=== PATIENT | male | born 1940 | race Caucasian/White ===

== ENCOUNTER 2017-05-19 21:07 | Emergency (ER) | payer OTHER ==
[~2017-05-19] VITALS: Ht 177.8 cm; Wt 108.1 kg
[~2017-05-19 21:07] MED LIST: ACETAMINOPHEN; ALLOPURINOL100 MG PO; BREO ELLIPTA 21 EACH IH; BUMEX1 MG PO; CALCITRIOL0.25 MCG PO; CATAPRES0.3 MG PO; COUMADIN,JANTOVE4 MG PO; COUMADIN4 MG PO; COZAAR100 MG PO; DAILY VALUE1 EACH PO; DIGESTIVE ADVA1 EAC1 PO; Diabeta,Micronase PO; FLAGYL500 MG PO; FORTAMET1000 M1 PO; HUMALIN N; HUMALOG (UNIT)1 UNIT SC; HUMALOG100 UNITS/ SC; HYTRIN10 MG PO; INCRUSE ELLI62.5 MCG IH; K-DUR20 MEQ PO; KEFLEX500 MG PO; KLOR-CON M2020 MEQ PO; LASIX40 MG PO; LEVAQUIN750 MG PO; LEVOTHROID50 MCG PO; LEVOTHYROXINE100 MCG PO; MAXZIDE 37.5 M1 EACH PO; METOPROLOL TART25 MG PO; MULTIVITAMIN1 EAC1 PO; NADOLOL40 M1 PO; NOVOLIN N100 UNITS/ SC; PRINIVIL20 MG PO; SIMVASTATIN40 M1 PO; SIMVASTATIN40 MG PO; SPIRIVA1 INHALATI IH; TRADJENTA5 MG PO; TRAMADOL HCL50 MG PO; TRIAMTERENE-HC1 EACH PO; TYLENOL ARTHRI650 MG PO; Tylenol Extra Streng PO; ULTRAM50 MG PO; VITAMIN C1000 M2 PO; VITAMIN C1000 MG PO; ZESTRIL20 MG PO; [UNRECOGNIZED DRUG - OTHER]; [UNRECOGNIZED DRUG - REMARK]
[2017-05-19 21:53] LABS: HEMATOCRIT 27.5 % (38.0-50.0); MCH 27.9 PG (29.0-34.0); MCHC 30.2 G/DL (30.0-36.0); MCV 92.3 FL (86-99); MEAN PLAT.VOLUME 9.8 uM^3 (9.0-12.4); PLATELET COUNT 171 K/uL (156-360); RBC DIS.WIDTH-CV 15.6 % (11.8-14.6); RBC DIS.WIDTH-SD 52.6 % (39-53); RED BLOOD COUNT 2.98 M/uL (4.00-5.50)
[2017-05-19 22:05] LABS: INTER. NORMALIZED RATIO 2.7; PROTHROMBIN TIME 28.7 (9.2-11.2); PTT 35.5 (25-32)
[2017-05-19 23:24] VITALS: BP 155/74
== END 2017-05-19 23:32 | disposition home or self-care (01) ==
LOC: EXP 21:07 → EME 21:07 → EXP 23:32
PROVIDERS: Physician Assistant
DX: R31.9 Hematuria, unspecified (principal); E11.9 Type 2 diabetes mellitus without complications; I10 Essential (primary) hypertension; I25.2 Old myocardial infarction; Z95.1 Presence of aortocoronary bypass graft; Z79.02 Long term (current) use of antithrombotics/antiplatelets; Z79.4 Long term (current) use of insulin
CPT/HCPCS: 81003; 85027; 85610; 85730; 99281; 99284

== ENCOUNTER 2017-07-02 14:30 | Inpatient (IN) | payer OTHER ==
[~2017-07-02] VITALS: Ht 177.8 cm; Wt 102.5 kg
[~2017-07-02 14:30] MED LIST changes: -LEVOTHYROXINE100 MCG PO; +LEVOTHYROXINE125 MCG PO
[2017-07-02 16:01] LABS: HEMATOCRIT 23.4 % (38.0-50.0); MCH 27.1 PG (29.0-34.0); MCHC 31.6 G/DL (30.0-36.0); MEAN PLAT.VOLUME 11.1 uM^3 (9.0-12.4); PLATELET COUNT 180 K/uL (156-360); RBC DIS.WIDTH-CV 17.3 % (11.8-14.6); RBC DIS.WIDTH-SD 53.9 % (39-53); RED BLOOD COUNT 2.73 M/uL (4.00-5.50); WHITE BLOOD COUNT 8.7 K/uL (4.1-10.2)
[2017-07-02 16:04] LABS: MCV 85.7 FL (86-99)
[2017-07-02 16:09] LABS: CHLORIDE 102 mEq/L (99-109); POTASSIUM 5.3 mEq/L (3.7-5.4); SODIUM 137 mEq/L (136-147)
[2017-07-02 16:11] LABS: GLUCOSE 175 mg/dL (70-99)
[2017-07-02 16:12] LABS: ANION GAP 15 MEQ/L (2-14)
[2017-07-02 16:13] LABS: INTER. NORMALIZED RATIO 3.5
[2017-07-02 16:15] LABS: GFR ESTIMATE (CALCULATED) 12 mL/min/
[2017-07-02 16:16] LABS: UREA NITROGEN (BUN) 178 mg/dL (9-23)
[2017-07-02 16:22] LABS: TROP-I INTERPRETATION POSITIVE
[2017-07-02 16:24] LABS: ADD MIUA? YES; BILIRUBIN NEGATIVE; BLOOD MODERATE; COLOR YELLOW ((YELLOW)); GLUCOSE (STRIP) NEGATIVE; KETONES NEGATIVE; LEUKOCYTES LARGE; NITRITE NEGATIVE; PROTEIN (STRIP) 100; SPECIFIC GRAVITY 1.013 (1.000-1.030); UROBILINOGEN 0.2 MG/DL (0.2-1.0)
[2017-07-02 16:24] LABS: TROPONIN-I 1.04 ng/mL (0.0-0.30)
[2017-07-02 17:08] LABS: BACTERIA 2+ /HPF; EPITHELIAL CELLS RARE /HPF; MUCUS NONE SEEN /LPF; UCUL ADDED? YES
[2017-07-02] MEDS ORDERED: NOVOLIN N100 UNITS/ SC (18:27)
[2017-07-02 21:12] VITALS: BP 149/81
[2017-07-02 23:03] VITALS: BP 138/72
[2017-07-02 23:24] VITALS: BP 128/72
[2017-07-03] VITALS (14 sets, daily range): BP systolic 108–167; BP diastolic 56–81
[2017-07-03 01:41] LABS: TROP-I INTERPRETATION POSITIVE
[2017-07-03 10:05] LABS: HEMATOCRIT 26.5 % (38.0-50.0); MCH 28.1 PG (29.0-34.0); MCHC 32.1 G/DL (30.0-36.0); MCV 87.7 FL (86-99); MEAN PLAT.VOLUME 10.6 uM^3 (9.0-12.4); PLATELET COUNT 159 K/uL (156-360); RBC DIS.WIDTH-CV 16.7 % (11.8-14.6); RED BLOOD COUNT 3.02 M/uL (4.00-5.50); WHITE BLOOD COUNT 8.1 K/uL (4.1-10.2)
[2017-07-03 10:42] LABS: TROP-I INTERPRETATION INDETERMINATE
[2017-07-03 10:43] LABS: ANION GAP 15 MEQ/L (2-14); CHLORIDE 106 MEQ/L (99-109); GFR ESTIMATE (CALCULATED) 12 mL/min/; GLUCOSE 146 mg/dL (70-99); POTASSIUM 5.3 MEQ/L (3.7-5.4); SAMPLE HEMOLYSIS CHECK 0; SAMPLE ICTERIC CHECK 0; SAMPLE LIPEMIA CHECK 0; SODIUM 140 MEQ/L (136-147); UREA NITROGEN (BUN) 153 mg/dL (9-23)
[2017-07-03 11:25] LABS: POINT-OF-CARE METER ID UU13113698
[2017-07-03 16:22] LABS: POINT-OF-CARE METER ID UU13113698
[2017-07-03 16:41] LABS: TROP-I INTERPRETATION INDETERMINATE; TROPONIN-I 0.58 ng/mL (0.0-0.30)
[2017-07-04 04:28] VITALS: BP 142/70
[2017-07-04 05:48] LABS: EOSINOPHIL (%) 8.7 % (0-5); EOSINOPHIL COUNT 0.7 K/uL (0-0.3); HEMATOCRIT 25.5 % (38.0-50.0); IMMATURE GRANULOCYTE (%) 1.8 % (0.0-0.7); IMMATURE GRANULOCYTE COUNT 0.2 K/uL; INSTRUMENT ABS NEUTROPHIL CT 6.2 K/uL; LYMPHOCYTE COUNT 0.6 K/uL (1.0-2.8); MCH 28.4 PG (29.0-34.0); MCHC 32.2 G/DL (30.0-36.0); MCV 88.2 FL (86-99); MEAN PLAT.VOLUME 10.3 uM^3 (9.0-12.4); MONOCYTE (%) 8.3 % (3-12); MONOCYTE COUNT 0.7 K/uL (0-0.8); NEUTROPHIL (%) 74.3 % (45-76); NEUTROPHIL COUNT 6.2 K/uL (1.8-6.4); NRBC (%) 0.2 /100 WBC (0-0); PLATELET COUNT 154 K/uL (156-360); RBC DIS.WIDTH-CV 16.8 % (11.8-14.6); RBC DIS.WIDTH-SD 54.4 % (39-53); RED BLOOD COUNT 2.89 M/uL (4.00-5.50); WHITE BLOOD COUNT 8.3 K/uL (4.1-10.2)
[2017-07-04 06:10] LABS: INTER. NORMALIZED RATIO 3.7; PROTHROMBIN TIME 43.5 SEC (10.2-12.9)
[2017-07-04 08:14] LABS: ANION GAP 16 MEQ/L (2-14); CHLORIDE 104 MEQ/L (99-109); POTASSIUM 5.2 MEQ/L (3.7-5.4); SAMPLE HEMOLYSIS CHECK 0; SAMPLE ICTERIC CHECK 0; SAMPLE LIPEMIA CHECK 0; SODIUM 140 MEQ/L (136-147)
[2017-07-04 08:29] LABS: GFR ESTIMATE (CALCULATED) 11 mL/min/
[2017-07-04 08:31] LABS: GLUCOSE 104 mg/dL (70-99); UREA NITROGEN (BUN) 160 mg/dL (9-23)
[2017-07-04 08:51] VITALS: BP 107/53
[2017-07-04 11:42] VITALS: BP 126/60
[2017-07-04 15:50] VITALS: BP 107/56
[2017-07-04 21:00] VITALS: BP 116/56
[2017-07-05] VITALS: BP 115/60
[2017-07-05 03:10] VITALS: BP 110/54
[2017-07-05 05:39] LABS: POINT-OF-CARE METER ID UU13113803
[2017-07-05 05:53] LABS: EOSINOPHIL (%) 8.4 % (0-5); EOSINOPHIL COUNT 0.8 K/uL (0-0.3); HEMATOCRIT 25.8 % (38.0-50.0); IMMATURE GRANULOCYTE (%) 1.5 % (0.0-0.7); IMMATURE GRANULOCYTE COUNT 0.1 K/uL; INSTRUMENT ABS NEUTROPHIL CT 7.1 K/uL; LYMPHOCYTE COUNT 0.5 K/uL (1.0-2.8); MCH 27.4 PG (29.0-34.0); MCV 88.4 FL (86-99); MEAN PLAT.VOLUME 10.2 uM^3 (9.0-12.4); MONOCYTE (%) 6.9 % (3-12); MONOCYTE COUNT 0.6 K/uL (0-0.8); NEUTROPHIL (%) 77.6 % (45-76); NEUTROPHIL COUNT 7.1 K/uL (1.8-6.4); PLATELET COUNT 154 K/uL (156-360); RBC DIS.WIDTH-SD 54.6 % (39-53); RED BLOOD COUNT 2.92 M/uL (4.00-5.50); WHITE BLOOD COUNT 9.2 K/uL (4.1-10.2)
[2017-07-05 07:49] VITALS: BP 99/63
[2017-07-05 08:12] LABS: ANION GAP 14 MEQ/L (2-14); CHLORIDE 102 MEQ/L (99-109); GFR ESTIMATE (CALCULATED) 10 mL/min/; GLUCOSE 95 mg/dL (70-99); POTASSIUM 5.3 MEQ/L (3.7-5.4); SAMPLE HEMOLYSIS CHECK 0; SAMPLE ICTERIC CHECK 0; SAMPLE LIPEMIA CHECK 0; SODIUM 137 MEQ/L (136-147)
[2017-07-05 08:18] LABS: UREA NITROGEN (BUN) 166 mg/dL (9-23)
[2017-07-05] MEDS ORDERED: DEXILANT60 MG PO (08:38)
== END 2017-07-05 12:15 | disposition home health service (06) | DRG 378 ==
LOC: EME 14:30 → EDOF 18:20 → ENRESERV 18:22 → 4EAST 20:30 → ENPENDDIS 07-05 → 4EAST 07-05 12:15
PROVIDERS: Emergency Medicine; Family Medicine
PROC: 30233N1 Transfusion of Nonautologous Red Blood Cells into Peripheral Vein, Percutaneous Approach (ICD-10-PCS; principal; 2017-07-02)
DX: K27.4 Chronic or unspecified peptic ulcer, site unspecified, with hemorrhage (principal); D62 Acute posthemorrhagic anemia; N17.9 Acute kidney failure, unspecified; I24.8 Other forms of acute ischemic heart disease; I12.9 Hypertensive chronic kidney disease with stage 1 through stage 4 chronic kidney disease, or unspecified chronic kidney disease; N18.4 Chronic kidney disease, stage 4 (severe); E11.22 Type 2 diabetes mellitus with diabetic chronic kidney disease; E11.42 Type 2 diabetes mellitus with diabetic polyneuropathy; I48.2 Chronic atrial fibrillation; R09.02 Hypoxemia; R60.9 Edema, unspecified; I25.10 Atherosclerotic heart disease of native coronary artery without angina pectoris; G47.33 Obstructive sleep apnea (adult) (pediatric); E78.5 Hyperlipidemia, unspecified; E03.9 Hypothyroidism, unspecified; M15.9 Polyosteoarthritis, unspecified; N31.2 Flaccid neuropathic bladder, not elsewhere classified; L97.919 Non-pressure chronic ulcer of unspecified part of right lower leg with unspecified severity; L97.929 Non-pressure chronic ulcer of unspecified part of left lower leg with unspecified severity; E66.01 Morbid (severe) obesity due to excess calories; Z68.32 Body mass index [BMI] 32.0-32.9, adult; I25.2 Old myocardial infarction; Z95.1 Presence of aortocoronary bypass graft; Z95.5 Presence of coronary angioplasty implant and graft; Z79.01 Long term (current) use of anticoagulants; Z79.4 Long term (current) use of insulin; Z79.84 Long term (current) use of oral hypoglycemic drugs; Z87.891 Personal history of nicotine dependence
CPT/HCPCS: 71010; 80048; 81003; 82948; 84484; 85025; 85027; 85610; 86900; 86901; 86920; 87086; 93005; 94799; 99281; 99285; A6260; C9113; J1815; J7030; P9016

== ENCOUNTER 2017-07-06 11:45 | Inpatient (IN) | payer OTHER ==
[~2017-07-06] VITALS: Ht 177.8 cm; Wt 112.8 kg
[~2017-07-06 11:45] MED LIST changes: +DEXILANT60 MG PO
[2017-07-06 12:41] LABS: MCH 26.8 PG (29.0-34.0); MCHC 31.1 G/DL (30.0-36.0); MCV 86.3 FL (86-99); MEAN PLAT.VOLUME 10.7 uM^3 (9.0-12.4); PLATELET COUNT 168 K/uL (156-360); RBC DIS.WIDTH-CV 17.1 % (11.8-14.6); RBC DIS.WIDTH-SD 53.2 % (39-53); RED BLOOD COUNT 3.13 M/uL (4.00-5.50); WHITE BLOOD COUNT 8.1 K/uL (4.1-10.2)
[2017-07-06 12:47] LABS: INTER. NORMALIZED RATIO 2.2
[2017-07-06 12:56] LABS: CHLORIDE 103 mEq/L (99-109); POTASSIUM 5.4 mEq/L (3.7-5.4); SODIUM 136 mEq/L (136-147)
[2017-07-06 13:00] LABS: ANION GAP 16 MEQ/L (2-14); TOTAL BILIRUBIN 0.4 mg/dL (0.0-1.0)
[2017-07-06 13:01] LABS: TROP-I INTERPRETATION INDETERMINATE; TROPONIN-I 0.38 ng/mL (0.0-0.30)
[2017-07-06 13:02] LABS: ALKALINE PHOSPHATASE 119 IU/L (3-129); GFR ESTIMATE (CALCULATED) 10 mL/min/
[2017-07-06 13:04] LABS: GLUCOSE 204 mg/dL (70-99); UREA NITROGEN (BUN) 174 mg/dL (9-23)
[2017-07-06 18:29] LABS: POINT-OF-CARE METER ID UU13113702
[2017-07-06 22:49] VITALS: BP 110/64
[2017-07-07 00:55] VITALS: BP 117/70
[2017-07-07 06:26] LABS: MCH 27.6 PG (29.0-34.0); MCHC 31.6 G/DL (30.0-36.0); MCV 87.4 FL (86-99); MEAN PLAT.VOLUME 10.1 uM^3 (9.0-12.4); PLATELET COUNT 144 K/uL (156-360); RBC DIS.WIDTH-CV 17.2 % (11.8-14.6); RBC DIS.WIDTH-SD 54.2 % (39-53); RED BLOOD COUNT 2.86 M/uL (4.00-5.50); WHITE BLOOD COUNT 6.9 K/uL (4.1-10.2)
[2017-07-07 06:48] LABS: INTER. NORMALIZED RATIO 2.7; PROTHROMBIN TIME 30.6 SEC (10.2-12.9)
[2017-07-07 07:07] LABS: ANION GAP 16 MEQ/L (2-14); CHLORIDE 103 MEQ/L (99-109); GFR ESTIMATE (CALCULATED) 10 mL/min/; GLUCOSE 132 mg/dL (70-99); POTASSIUM 5.1 MEQ/L (3.7-5.4); SAMPLE HEMOLYSIS CHECK 0; SAMPLE ICTERIC CHECK 0; SAMPLE LIPEMIA CHECK 0; SODIUM 137 MEQ/L (136-147)
[2017-07-07 07:14] LABS: UREA NITROGEN (BUN) 161 mg/dL (9-23)
[2017-07-07 07:35] VITALS: BP 124/60
[2017-07-07 15:17] VITALS: BP 110/78
[2017-07-07 20:48] VITALS: BP 131/58
[2017-07-07 23:37] VITALS: BP 132/59
[2017-07-08 04:30] VITALS: BP 127/60
[2017-07-08 06:23] LABS: HEMATOCRIT 25.1 % (38.0-50.0); MCHC 31.1 G/DL (30.0-36.0); MCV 86.9 FL (86-99); MEAN PLAT.VOLUME 10.4 uM^3 (9.0-12.4); PLATELET COUNT 162 K/uL (156-360); RBC DIS.WIDTH-CV 17.2 % (11.8-14.6); RBC DIS.WIDTH-SD 54.4 % (39-53); RED BLOOD COUNT 2.89 M/uL (4.00-5.50); WHITE BLOOD COUNT 7.4 K/uL (4.1-10.2)
[2017-07-08 06:55] LABS: ANION GAP 16 MEQ/L (2-14); CHLORIDE 105 MEQ/L (99-109); GFR ESTIMATE (CALCULATED) 9 mL/min/; POTASSIUM 4.9 MEQ/L (3.7-5.4); SAMPLE HEMOLYSIS CHECK 0; SAMPLE ICTERIC CHECK 0; SAMPLE LIPEMIA CHECK 0; SODIUM 140 MEQ/L (136-147)
[2017-07-08 06:57] LABS: GLUCOSE 73 mg/dL (70-99); UREA NITROGEN (BUN) 159 mg/dL (9-23)
[2017-07-08 07:06] LABS: POINT-OF-CARE METER ID UU13113725
[2017-07-08 07:20] VITALS: BP 118/58
[2017-07-08 07:27] LABS: C DIFF TOXIN POSITIVE (NEGATIVE)
[2017-07-08 07:28] LABS: PROBE CHECK PASS
[2017-07-08 11:30] VITALS: BP 122/78
[2017-07-08 15:25] VITALS: BP 120/68
[2017-07-08 20:02] VITALS: BP 121/59
[2017-07-08 22:47] VITALS: BP 132/68
[2017-07-09 04:58] VITALS: BP 152/76
[2017-07-09 06:16] LABS: HEMATOCRIT 24.8 % (38.0-50.0); MCH 27.2 PG (29.0-34.0); MCHC 31.5 G/DL (30.0-36.0); MCV 86.4 FL (86-99); MEAN PLAT.VOLUME 10.7 uM^3 (9.0-12.4); NRBC (%) 0.3 /100 WBC (0-0); PLATELET COUNT 153 K/uL (156-360); RBC DIS.WIDTH-CV 17.3 % (11.8-14.6); RBC DIS.WIDTH-SD 55.7 % (39-53); RED BLOOD COUNT 2.87 M/uL (4.00-5.50); WHITE BLOOD COUNT 6.1 K/uL (4.1-10.2)
[2017-07-09] MEDS ORDERED: OXYCODONE HCL5 MG PO (06:22)
[2017-07-09 06:37] LABS: ANION GAP 16 MEQ/L (2-14); CHLORIDE 104 MEQ/L (99-109); GFR ESTIMATE (CALCULATED) 9 mL/min/; GLUCOSE 102 mg/dL (70-99); POTASSIUM 5.1 MEQ/L (3.7-5.4); SAMPLE HEMOLYSIS CHECK 0; SAMPLE ICTERIC CHECK 0; SAMPLE LIPEMIA CHECK 0; SODIUM 139 MEQ/L (136-147)
[2017-07-09 08:32] VITALS: BP 109/58
[2017-07-09 09:21] LABS: UREA NITROGEN (BUN) 163 mg/dL (9-23)
[2017-07-09 12:02] VITALS: BP 118/58
[2017-07-09] MEDS ORDERED: METRONIDAZOLE500 MG PO (15:07)
[2017-07-09] MEDS ORDERED: PANTOPRAZOLE SO40 MG PO (15:09)
[2017-07-09 15:59] VITALS: BP 125/65
== END 2017-07-09 18:10 | DRG 683 ==
LOC: EME → EDBD 11:45 → EME 11:45 → 5EAST 13:54 → EDOF 13:54 → ENRESERV 13:57 → 5EAST 21:14
PROVIDERS: Emergency Medicine; Family Medicine
PROC: 5A09357 Assistance with Respiratory Ventilation, Less than 24 Consecutive Hours, Continuous Positive Airway Pressure (ICD-10-PCS; principal; 2017-07-06)
DX: N17.9 Acute kidney failure, unspecified (principal); A04.7 Enterocolitis due to Clostridium difficile; L97.821 Non-pressure chronic ulcer of other part of left lower leg limited to breakdown of skin; L97.321 Non-pressure chronic ulcer of left ankle limited to breakdown of skin; I13.2 Hypertensive heart and chronic kidney disease with heart failure and with stage 5 chronic kidney disease, or end stage renal disease; I24.8 Other forms of acute ischemic heart disease; J98.11 Atelectasis; G89.29 Other chronic pain; M25.511 Pain in right shoulder; E11.22 Type 2 diabetes mellitus with diabetic chronic kidney disease; I50.9 Heart failure, unspecified; I48.2 Chronic atrial fibrillation; G47.33 Obstructive sleep apnea (adult) (pediatric); N31.2 Flaccid neuropathic bladder, not elsewhere classified; N18.5 Chronic kidney disease, stage 5; D63.1 Anemia in chronic kidney disease; E03.9 Hypothyroidism, unspecified; D50.0 Iron deficiency anemia secondary to blood loss (chronic); E78.5 Hyperlipidemia, unspecified; E11.65 Type 2 diabetes mellitus with hyperglycemia; I25.10 Atherosclerotic heart disease of native coronary artery without angina pectoris; M15.8 Other polyosteoarthritis; L89.611 Pressure ulcer of right heel, stage 1; L89.621 Pressure ulcer of left heel, stage 1; Z91.15 Patient's noncompliance with renal dialysis; Z99.81 Dependence on supplemental oxygen; I25.2 Old myocardial infarction; Z79.84 Long term (current) use of oral hypoglycemic drugs; Z79.4 Long term (current) use of insulin; Z79.01 Long term (current) use of anticoagulants; Z87.891 Personal history of nicotine dependence; Z86.19 Personal history of other infectious and parasitic diseases; Z95.1 Presence of aortocoronary bypass graft; Z95.5 Presence of coronary angioplasty implant and graft
CPT/HCPCS: 71010; 76770; 80048; 80053; 82948; 84484; 85027; 85610; 86900; 86901; 87493; 93005; 94760; 94799; 97530 GO; 99281; 99285; C9113; J0881; J1815; J3430; J7030; J7050